=== PATIENT | female | born 1975 | race Caucasian/White ===

== ENCOUNTER 2022-07-30 09:54 | Emergency (ER) | payer OTHER ==
[2022-07-30 10:12] VITALS: RESP 18
--- NOTE | 2022-07-30 10:20 | ED ---
General Adult HPI - General Source: patient, RN notes reviewed Mode of arrival: ambulatory Limitations: no limitations <Lety Dyer - Last Filed: 07/30/22 10:14> - General Source: patient, RN notes reviewed, old records reviewed <German Hancock - Last Filed: 07/30/22 15:54> - General Chief complaint: Abdominal Pain Stated complaint: abd pain, vomiting Time Seen by Provider: 07/30/22 10:14 - History of Present Illness Initial comments: 46 year old female presents to the emergency department for epigastric pain x 1 week. She notes she was at work today when the pain got worse. She describes the pain as burning and dull, however if she moves it will be sharp. She saw her PCP for this on 07/21/2022 who gave her protonix, however it has not helped. She admits to accompanying symptoms of nausea and vomiting and noticed bright red, stringy mucus and foam in her vomit. Denies fever, chest pain, palpitations, shortness of breath, diarrhea, dysuria, hematuria. She admits to history of cholecystectomy and "lap band surgery." (Lety Dyer) Patient is a 46-year-old female with past medical history remarkable for fibromyalgia, prior laparoscopic gastric band procedure, chronic pain who presents emergency Department complaining of worsening epigastric abdominal pain that has been ongoing for last 3-4 weeks. Associated with this is nausea and intermittent vomiting. Denies any hematuria. Denies any dysuria or hematuria. Denies any diarrhea. Has been intermittently tolerating oral intake. He is to follow-up with her physician next week does not believe that she can make it. Previously used daily Motrin and Tylenol but has not been recently. Denies any chest pain, shortness breath. No cardiac history. No fevers, chills, cough. Denies being . No vaginal bleeding or discharge. Describe the pain as a dull-like pain that is worse when she is having episodes of emesis. Does not radiate. Does not chronically drink alcohol. Presents for further evaluation at this time. Has been attempting to use Protonix at home with minimal improvement in pain. Patient does have a history of cholecystectomy.Patient was initially evaluated by mid-level provider in the waiting room and a quick note was completed. I reevaluated the patient when she is placed in a room. (German Hancock) - Related Data Home Medications Medication Instructions Recorded Confirmed Pantoprazole Sodium [Protonix] 40 mg PO DAILY 07/30/22 07/30/22 Pregabalin [Lyrica] 150 mg PO BID 07/30/22 07/30/22 RX: traMADol HCL 50 - 100 mg PO TID PRN 07/30/22 07/30/22 Previous Rx's Medication Instructions Recorded Mag Hydrox/Al Hydrox/Simeth 30 ml PO BID PRN #500 ml 07/30/22 [Maalox] Ondansetron Odt [Zofran Odt] 4 mg PO Q8HR PRN 3 Days #9 tab 07/30/22 Pantoprazole [Protonix] 40 mg PO DAILY 7 Days #7 tab 07/30/22 Allergies Allergy/AdvReac Type Severity Reaction Status Date / Time Sulfa (Sulfonamide Allergy Rash/Hives Verified 07/30/22 14:16 Antibiotics) Review of Systems ROS Other: All systems not noted in ROS Statement are negative. <Lety Dyer - Last Filed: 07/30/22 10:14> ROS Other: All systems not noted in ROS Statement are negative. <German Hancock - Last Filed: 07/30/22 15:54> ROS Statement: Those systems with pertinent positive or pertinent negative responses have been documented in the HPI. Review of Systems: CONST: Denies fever EYES: Denies blurry vision ENT: Denies nasal congestion C/V: Denies Chest pain RESP: Denies shortness of breath GI: Endorses abdominal pain : Denies dysuria SKIN: Denies rash. MSK: Denies joint pain. NEURO: Denies headache (German Hancock) Past Medical History Past Medical History: No Reported History History of Any Multi-Drug Resistant Organisms: None Reported Past Surgical History: Cholecystectomy, Tubal Ligation Additional Past Surgical History / Comment(s): Lap band. Past Psychological History: Anxiety, Depression Smoking Status: Never smoker Past Alcohol Use History: Occasional Past Drug Use History: None Reported <Lety Dyer - Last Filed: 07/30/22 10:14> General Exam Limitations: no limitations <Lety Dyer - Last Filed: 07/30/22 10:14> <German Hancock - Last Filed: 07/30/22 15:54> - General Exam Comments Initial Comments: General: Appears in no acute distress. HEAD: Normal with no signs of head trauma. EYES: PERRLA, EOMI, conjunctiva normal, no discharge. ENT: Hearing grossly intact, normal oropharynx. RESPIRATORY: Clear breath sounds bilaterally. No wheezes, rales, or rhonchi. C/V: Regular rate and rhythm. S1 and S2 auscultated, no edema, peripheral pulses 2+ and intact throughout ABD: Abdomen is soft, nondistended. Tender to palpation epigastric region. No guarding. No peritoneal signs. No rebound tenderness. EXT: Normal range of motion, no obvious deformity SKIN: No rashes or lesions observed on exposed skin. NEURO: Alert and oriented 4. (German Hancock) Course Vital Signs 07/30/22 07/30/22 10:08 15:00 Temperature 98 F 99.1 F Pulse Rate 78 64 Respiratory 18 18 Rate Blood Pressure 130/78 121/78 O2 Sat by Pulse 98 99 Oximetry Medical Decision Making - Lab Data Result diagrams: 07/30/22 12:55 07/30/22 12:55 <German Hancock - Last Filed: 07/30/22 15:54> - Lab Data Lab Results 07/30/22 07/30/22 07/30/22 Range/Units 11:00 12:55 12:55 WBC 7.9 (3.8-10.6) k/uL RBC 4.74 (3.80-5.40) m/uL Hgb 14.3 (11.4-16.0) gm/dL Hct 43.8 (34.0-46.0) % MCV 92.5 (80.0-100.0) fL MCH 30.1 (25.0-35.0) pg MCHC 32.6 (31.0-37.0) g/dL RDW 13.4 (11.5-15.5) % Plt Count 235 (150-450) k/uL MPV 8.9 Neutrophils % 66 % Lymphocytes % 26 % Monocytes % 5 % Eosinophils % 1 % Basophils % 1 % Neutrophils # 5.2 (1.3-7.7) k/uL Lymphocytes # 2.1 (1.0-4.8) k/uL Monocytes # 0.4 (0-1.0) k/uL Eosinophils # 0.1 (0-0.7) k/uL Basophils # 0.1 (0-0.2) k/uL PT 9.7 (9.0-12.0) sec INR 0.9 (<1.2) APTT 23.4 (22.0-30.0) sec Sodium (137-145) mmol/L Potassium (3.5-5.1) mmol/L Chloride (98-107) mmol/L Carbon Dioxide (22-30) mmol/L Anion Gap mmol/L BUN (7-17) mg/dL Creatinine (0.52-1.04) mg/dL Est GFR (CKD-EPI)AfAm (>60 ml/min/1.73 sqM) Est GFR (CKD-EPI)NonAf (>60 ml/min/1.73 sqM) Glucose (74-99) mg/dL Plasma Lactic Acid Jann (0.7-2.0) mmol/L Calcium (8.4-10.2) mg/dL Total Bilirubin (0.2-1.3) mg/dL AST (14-36) U/L ALT (4-34) U/L Alkaline Phosphatase (38-126) U/L Troponin I (0.000-0.034) ng/mL Total Protein (6.3-8.2) g/dL Albumin (3.5-5.0) g/dL Amylase (30-110) U/L Lipase (23-300) U/L HCG, Qual Urine Color Light Yellow Urine Appearance Clear (Clear) Urine pH 5.5 (5.0-8.0) Ur Specific [place] 1.023 (1.001-1.035) Urine Protein Negative (Negative) Urine Glucose (UA) Negative (Negative) Urine Ketones 1+ H (Negative) Urine Blood Negative (Negative) Urine Nitrite Negative (Negative) Urine Bilirubin Negative (Negative) Urine Urobilinogen <2.0 (<2.0) mg/dL Ur Leukocyte Esterase Moderate H (Negative) Urine RBC 2 (0-5) /hpf Urine WBC 3 (0-5) /hpf Ur Squamous Epith Cells 4 (0-4) /hpf Urine Mucus Rare H (None) /hpf 07/30/22 07/30/22 07/30/22 Range/Units 12:55 12:55 12:55 WBC (3.8-10.6) k/uL RBC (3.80-5.40) m/uL Hgb (11.4-16.0) gm/dL Hct (34.0-46.0) % MCV (80.0-100.0) fL MCH (25.0-35.0) pg MCHC (31.0-37.0) g/dL RDW (11.5-15.5) % Plt Count (150-450) k/uL MPV Neutrophils % % Lymphocytes % % Monocytes % % Eosinophils % % Basophils % % Neutrophils # (1.3-7.7) k/uL Lymphocytes # (1.0-4.8) k/uL Monocytes # (0-1.0) k/uL Eosinophils # (0-0.7) k/uL Basophils # (0-0.2) k/uL PT (9.0-12.0) sec INR (<1.2) APTT (22.0-30.0) sec Sodium 141 (137-145) mmol/L Potassium 3.8 (3.5-5.1) mmol/L Chloride 108 H (98-107) mmol/L Carbon Dioxide 25 (22-30) mmol/L Anion Gap 8 mmol/L BUN 16 (7-17) mg/dL Creatinine 0.70 (0.52-1.04) mg/dL Est GFR (CKD-EPI)AfAm >90 (>60 ml/min/1.73 sqM) Est GFR (CKD-EPI)NonAf >90 (>60 ml/min/1.73 sqM) Glucose 76 (74-99) mg/dL Plasma Lactic Acid Jann 1.1 (0.7-2.0) mmol/L Calcium 8.9 (8.4-10.2) mg/dL Total Bilirubin 0.8 (0.2-1.3) mg/dL AST 25 (14-36) U/L ALT 19 (4-34) U/L Alkaline Phosphatase 61 (38-126) U/L Troponin I <0.012 (0.000-0.034) ng/mL Total Protein 7.2 (6.3-8.2) g/dL Albumin 4.2 (3.5-5.0) g/dL Amylase 74 (30-110) U/L Lipase 65 (23-300) U/L HCG, Qual Not Detected Urine Color Urine Appearance (Clear) Urine pH (5.0-8.0) Ur Specific [place] (1.001-1.035) Urine Protein (Negative) Urine Glucose (UA) (Negative) Urine Ketones (Negative) Urine Blood (Negative) Urine Nitrite (Negative) Urine Bilirubin (Negative) Urine Urobilinogen (<2.0) mg/dL Ur Leukocyte Esterase (Negative) Urine RBC (0-5) /hpf Urine WBC (0-5) /hpf Ur Squamous Epith Cells (0-4) /hpf Urine Mucus (None) /hpf Disposition <Lety Dyer - Last Filed: 07/30/22 10:14> Is patient prescribed a controlled substance at d/c from ED?: No Time of Disposition: 15:35 <German Hancock - Last Filed: 07/30/22 15:54> Clinical Impression: Abdominal pain Disposition: HOME SELF-CARE Condition: Good Instructions (If sedation given, give patient instructions): Abdominal Pain (ED) Prescriptions: Mag Hydrox/Al Hydrox/Simeth [Maalox] 30 ml PO BID PRN #500 ml PRN Reason: Dyspepsia Pantoprazole [Protonix] 40 mg PO DAILY 7 Days #7 tab Ondansetron Odt [Zofran Odt] 4 mg PO Q8HR PRN 3 Days #9 tab PRN Reason: Nausea Referrals: Ari Price MD [Primary Care Provider] - 1-2 days
[2022-07-30 13:03] LABS: Appearance,Urine Clear (Clear); Bilirubin,Urine Negative (Negative); Blood,Urine Negative (Negative); Color,Urine Light Yellow; Glucose,Urine (UA) Negative (Negative); Ketones,Urine 1+ (Negative); Leukocyte Esterase,Urine Moderate (Negative); Mucus,Urine Rare /hpf; Nitrite,Urine Negative (Negative); PH, Urine 5.5 (5.0-8.0); Protein,Urine Negative (Negative); RBC,Urine 2 /hpf (0-5); Specific Gravity,Urine 1.023 (1.001-1.035); Squamous Epithelial Cell,Urine 4 /hpf (0-4); Urobilinogen,Urine <2.0 mg/dL (<2.0); WBC,Urine 3 /hpf (0-5)
[2022-07-30] MEDS ORDERED: MAG HYDROX/AL HYDROX/SIMETH 30 ML, HYOSCYAMINE ELIXIR 10 ML, LIDOCAINE VISCOUS 2% 10 ML PO STA ×3 (13:08)
[2022-07-30] MEDS ORDERED: MORPHINE SULFATE 4 MG/ML SYRINGE IVP STA (13:08)
[2022-07-30] MEDS ORDERED: ONDANSETRON 4 MG/2 ML VIAL IVP STA (13:08)
[2022-07-30] MEDS ORDERED: PANTOPRAZOLE 40 MG/10 ML VIAL IVP STA (13:08)
[2022-07-30 13:31] LABS: Basophils # (A) 0.1 k/uL (0-0.2); Basophils % (A) 1 %; Eosinophils # (A) 0.1 k/uL (0-0.7); Eosinophils % (A) 1 %; HCT 43.8 % (34.0-46.0); HGB 14.3 gm/dL (11.4-16.0); Lymphocytes # (A) 2.1 k/uL (1.0-4.8); Lymphocytes % (A) 26 %; MCH 30.1 pg (25.0-35.0); MCHC 32.6 g/dL (31.0-37.0); MCV 92.5 fL (80.0-100.0); Mean Platelet Volume 8.9; Monocytes # (A) 0.4 k/uL (0-1.0); Monocytes % (A) 5 %; Neutrophils # (A) 5.2 k/uL (1.3-7.7); Neutrophils % (A) 66 %; Platelet Count 235 k/uL (150-450); RBC 4.74 m/uL (3.80-5.40); RDW 13.4 % (11.5-15.5); WBC 7.9 k/uL (3.8-10.6)
--- NOTE | 2022-07-30 13:39 | XR ---
EXAMINATION TYPE: XR chest 2V DATE OF EXAM: 07/30/2022 COMPARISON: None HISTORY: 46-year-old female upper abdominal pain TECHNIQUE: PA and lateral views FINDINGS: Heart normal size. Aorta and pulmonary vasculature within normal limits. No consolidation or pleural effusion. A lap band device is noted in the upper abdomen. IMPRESSION: No acute cardiopulmonary process.
[2022-07-30 13:44] LABS: HCG,Qualitative Serum Not Detected
[2022-07-30 13:49] LABS: ALT 19 U/L (4-34); AST 25 U/L (14-36); African American GFR (CKD) >90 (>60 ml/min/1.73 sqM); Albumin 4.2 g/dL (3.5-5.0); Alkaline Phosphatase 61 U/L (38-126); Amylase 74 U/L (30-110); Anion Gap 8 mmol/L; Blood Urea Nitrogen 16 mg/dL (7-17); Calcium 8.9 mg/dL (8.4-10.2); Carbon Dioxide 25 mmol/L (22-30); Chloride 108 mmol/L (98-107); Glucose 76 mg/dL (74-99); Lipase 65 U/L (23-300); Non-African American GFR(CKD) >90 (>60 ml/min/1.73 sqM); Sodium 141 mmol/L (137-145); Total Bilirubin 0.8 mg/dL (0.2-1.3); Total Protein 7.2 g/dL (6.3-8.2)
[2022-07-30 13:51] LABS: INR 0.9 (<1.2); Partial Thromboplastin Time 23.4 sec (22.0-30.0); Prothrombin Time 9.7 sec (9.0-12.0)
[2022-07-30 14:06] LABS: Potassium 3.8 mmol/L (3.5-5.1)
--- NOTE | 2022-07-30 14:11 | CT ---
EXAMINATION TYPE: CT abdomen pelvis w con CT DLP: 1179.2 mGycm, Automated exposure control for dose reduction was used. DATE OF EXAM: 07/30/2022 1:54 PM COMPARISON: None CLINICAL INDICATION:Female, 46 years old with history of epigastric abd pain. history of lap band; ab dominal pain and vomiting TECHNIQUE: Standard CT of the abdomen and pelvis following the administration of 100 cc of Isovue 3 00 IV contrast material. Coronal and sagittal reformats were performed. FINDINGS: LOWER CHEST: Unremarkable ABDOMEN LIVER: Small region of low attenuation adjacent to the falciform ligament likely representing focal f atty infiltration. GALLBLADDER AND BILE DUCTS: The gallbladder is surgically absent. No biliary duct dilatation. PANCREAS: Unremarkable. SPLEEN: Unremarkable. ADRENAL GLANDS: Unremarkable. KIDNEYS AND URETERS: No evidence of hydronephrosis or renal calculus. The kidneys enhance symmetrical ly without suspicious focal lesion. PELVIS BLADDER: Incompletely distended but grossly unremarkable. REPRODUCTIVE: Suggested thickened appearance to the endometrium measuring up to 2.1 cm. ABDOMEN & PELVIS STOMACH AND BOWEL: Post surgical changes from gastric lap band. The duodenum is within normal limits. No focal wall thickening. The appendix is within normal limits. No evidence of bowel obstruction. PERITONEUM: No evidence of pneumoperitoneum or free fluid. VASCULATURE: No evidence of aortic aneurysm. MUSCULOSKELETAL: No acute osseous abnormalities LYMPH NODES: No gross evidence for lymphadenopathy. SOFT TISSUE/ABDOMINAL WALL: Small fat filled hernia. IMPRESSION: 1. No acute abdominal/pelvic process. 2. Suggested thickening of the endometrium. Further evaluation with nonemergent pelvic ultrasound rec ommended.
[2022-07-30 15:01] VITALS: BP 121/78; PULSE 64; TEMP 99.1
== END 2022-07-30 15:57 | disposition home or self-care (01) ==
LOC: EC 09:54
DX: R10.13 Epigastric pain (principal); F41.9 Anxiety disorder, unspecified; F32.A Depression, unspecified; Z88.2 Allergy status to sulfonamides; Z90.49 Acquired absence of other specified parts of digestive tract
CPT/HCPCS: 99284; 96374; 96375; 36415; 93005; 80053; 82150; 83605; 83690; 84484; 85025; 85610; 85730; 81001; 84703; 71046; 74177; J2405; C9113; Q9967

== ENCOUNTER → 2022-08-04 | Outpatient (CLI) | payer OTHER ==
[2022-08-04 14:17] VITALS: BP 122/78; PULSE 86; RESP 16; TEMP 98.8; BMI 32.1
--- NOTE | 2022-08-04 15:56 | P.BASOAP ---
Subjective Progress Note Date: 08/04/22 Principal diagnosis: Epigastric pain, GERD 46-year-old female known to our service. Patient underwent previous lap band placement. Starting 2-3 weeks ago patient started having epigastric burning pain. This was associated with nausea and vomiting and on one episode noticed some hematemesis. She is having some heartburn. No dysphagia. She states the band does not necessarily feel tight. She thought the band was currently empty after previous evaluation years ago. Patient had a lik-QUX-HOVV weight of 245. She was able to get down to 155. Unfortunately the patient then gained her weight after the band was emptied up to 245 again. She has lost about 60 pounds in the last few years from low-carb dieting. Patient has tried prescription antiacids and Tums without relief. She describes increased gas. Objective - Vital Signs Vital signs: Vital Signs Temp 98.8 F 08/04/22 13:56 Pulse 86 08/04/22 13:56 Resp 16 08/04/22 13:56 BP 122/78 08/04/22 13:56 Pulse Ox FiO2 Intake & Output 08/03/22 08/04/22 08/04/22 18:59 06:59 18:59 Weight 82.1 kg - Exam Abdomen: Soft, mild epigastric tenderness Assessment/Plan (1) Abdominal pain Narrative/Plan: We 6-year-old female with epigastric pain, nausea and vomiting, and GERD symptoms. We will first empty the band. Following that recommend EGD to evaluate for lap band erosion or ulcer. The patient's lap band port was palpated. The site was aseptically prepped. The Alonso needle was advanced into the port. A total of 1.5 ml of fluid was removed. Band is now empty. Pressure was held and a sterile dressing was applied. Plan: Date: 08/04/22 Initial Weight: 111.13 kg Initial BMI: 43.4 Current Weight: 82.1 kg Current BMI: 32.1 Type of Surgery: Adjustable Gastric Banding Total Volume in Band: Previous Volume: Volume Removed: Volume Added: Band Size:
== END ==
LOC: BARWHC3 13:31
PROVIDERS: ATTEND Surgery
DX: R10.9 Unspecified abdominal pain (principal); Z68.32 Body mass index [BMI] 32.0-32.9, adult; K21.9 Gastro-esophageal reflux disease without esophagitis; Z88.2 Allergy status to sulfonamides
CPT/HCPCS: 99212

== ENCOUNTER 2022-08-06 11:39 | Day surgery (SDC) | payer OTHER ==
[2022-08-05 11:25] VITALS: BMI 32.2
[2022-08-06] MEDS ORDERED: LACTATED RINGERS 1,000 ML IV SCH (11:50)
[2022-08-06] MEDS ORDERED: LIDOCAINE 1% (10MG/ML) FOR IV START INTRADERMA PRN (11:50)
[2022-08-06] MEDS ORDERED: ONDANSETRON 4 MG/2 ML VIAL IVP PRN (11:50)
[2022-08-06 12:22] VITALS: RESP 16; TEMP 97.4
[2022-08-06] MEDS ORDERED: PROPOFOL 10 MG/ML 20 ML VIAL IV ONE (12:44)
[2022-08-06] MEDS ORDERED: LIDOCAINE 2% INJ 20 MG/ML (2 ML VIAL) ONE (12:44)
--- NOTE | 2022-08-06 13:02 | P.GSHP ---
History of Present Illness H&P Date: 08/06/22 Chief Complaint: Epigastric pain 46-year-old female seen in the bariatric clinic 2 days ago. Yesterday she contact the office stating the pain was even worse. We moved her EGD which was scheduled for next week up to today. Mild nausea. Symptoms did seem somewhat better after loosening the band she says. Past Medical History Past Medical History: GERD/Reflux History of Any Multi-Drug Resistant Organisms: None Reported Past Surgical History: Bariatric Surgery, Cholecystectomy, Tubal Ligation Additional Past Surgical History / Comment(s): Lap band. Past Anesthesia/Blood Transfusion Reactions: No Reported Reaction Smoking Status: Never smoker - Past Family History Mother Family Medical History: No Reported History Medications and Allergies Home Medications Medication Instructions Recorded Confirmed Type Mag Hydrox/Al Hydrox/Simeth 30 ml PO BID PRN #500 ml 07/30/22 08/06/22 Rx [Maalox] Ondansetron Odt [Zofran Odt] 4 mg PO Q8HR PRN 3 Days #9 tab 07/30/22 08/06/22 Rx Pantoprazole Sodium [Protonix] 40 mg PO DAILY 07/30/22 08/06/22 History Pregabalin [Lyrica] 150 mg PO BID 07/30/22 08/06/22 History traMADol HCL 50 - 100 mg PO TID PRN 07/30/22 08/06/22 History Allergies Allergy/AdvReac Type Severity Reaction Status Date / Time Sulfa (Sulfonamide Allergy Rash/Hives Verified 08/06/22 11:55 Antibiotics) Surgical - Exam Vital Signs Temp Pulse Resp BP Pulse Ox 97.4 F L 63 16 115/59 98 08/06/22 12:15 08/06/22 12:15 08/06/22 12:15 08/06/22 12:15 08/06/22 12:15 Physical exam: General: Well-developed, well-nourished HEENT: Normocephalic, sclerae nonicteric Abdomen: Mild epigastric tenderness, nondistended Extremities: No edema Neuro: Alert and oriented Assessment and Plan (1) Abdominal pain Narrative/Plan: Will proceed with EGD Current Visit: No Status: Acute Code(s): R10.9 - UNSPECIFIED ABDOMINAL PAIN SNOMED Code(s): 79912172
--- NOTE | 2022-08-06 13:03 | P.PCN ---
Date of Procedure: 08/06/22 Procedure(s) Performed: Preoperative Dx: Epigastric pain Postoperative Dx: Mild gastritis Procedure: EGD with Bx Anesthesia: Sedation Endoscopist: Dr. Holder Specimens: Antrum Endoscopic Procedure: The patient was on the endoscopy table in the left decubitus position. The Olympus gastroscope was inserted into the oropharynx and passed under direct visualization to the region of the third portion of the duodenum. From that point the scope was slowly withdrawn inspecting all surfaces carefully. There were no neoplastic inflammatory or polypoid lesions throughout the duodenum. The pylorus was widely patent. The stomach was carefully inspected. There was mild gastritis present. A biopsy of the antrum took place to rule out H. pylori. Retroflexion revealed a normal band plication. There was no evidence of erosion or prolapse. The esophagus was then carefully examined. There were no neoplastic inflammatory or polypoid lesions throughout the visualized esophagus. The patient was then taken to the recovery room in stable condition per anesthesia guidelines. Recommendations: Will discuss findings with the patient. May consider band removal at this time.
[2022-08-06 13:25] VITALS: BP 105/74; PULSE 68
== END 2022-08-06 13:35 | disposition home or self-care (01) ==
LOC: ORWHC2ENDO 11:39
PROVIDERS: ATTEND Surgery
DX: K29.50 Unspecified chronic gastritis without bleeding (principal); K21.9 Gastro-esophageal reflux disease without esophagitis; F32.A Depression, unspecified; F41.9 Anxiety disorder, unspecified; Z88.2 Allergy status to sulfonamides; Z79.899 Other long term (current) drug therapy
CPT/HCPCS: 81025; 88305; 43239; J2704; J2001

== ENCOUNTER → 2023-03-19 | Outpatient (CLI) | payer OTHER | END | disposition home or self-care (01) | LOC: LABPAT 16:07 | PROVIDERS: ATTEND Obstetrics & Gynecology | DX: Z01.812 Encounter for preprocedural laboratory examination (principal); N81.4 Uterovaginal prolapse, unspecified | CPT/HCPCS: 80051; 82565; 82947; 84520; 85025; 86850; 86900; 86901; 87086 ==